=== PATIENT | male | born 1940 | race Caucasian/White ===

== ENCOUNTER 2021-05-10 11:15 | Day surgery (SDC) | payer OTHER, MEDICARE ==
[~2021-05-10] VITALS: Ht 162.6 cm; Wt 87.5 kg
[~2021-05-10 11:15] MED LIST: ASPI81CH PO; GLYB5 PO; INSULANI SC; LEVCAR2510 PO; LISI20 PO; METF500 PO; METF500C PO; NOVOLOG100 UNIT/3; OMEP20ER PO; PANTOPRAZOLE SO40 M1 PO; PERI4 PO; SIMV20 PO; SINEMET 25-1001 EAC1 PO; TRAM50 PO; ZOCOR20 MG PO
[2021-05-10] MEDS ORDERED: TRULICITY1.5 MG/0.1 (11:52)
--- NOTE | 2021-05-10 11:56 | NUR ---
PT ADMITTED TO [facility]. AGREES WITH PLANNED SURGERY. LUNG SOUNDS CLEAR.
--- NOTE | 2021-05-10 16:12 | NUR ---
ARRIVED FROM PACU VIA BED, AWAKE, A&OX4, DENIES ANY PAIN AT THIS TIME, DENIES ANY NUMBNESS OR TINGLING, MOVES TOES WELL, CLEAR LIQUIDS GIVEN, ORIENTED TO ROOM AND CALL LIGHT, CONT. TO MONITOR FOR ANY CHANGES.
[2021-05-10] MEDS ORDERED: MAGNESIUM OXID500 MG PO (16:35)
--- NOTE | 2021-05-10 17:26 | NUR ---
SUMMARY VSS, MEDICATED FOR PAIN SCHEDULED FOR C/O 09/13 BACK PAIN, LLE DSG C/D/I, PT EATING DINNER, DENIES ANY NAUSEA, NO ACUTE CHANGES THIS SHIFT.
[2021-05-11 04:46] LABS: BASOPHILS ABSOLUTE AUTO 0.01 K/mm3 (0.00-0.23); BASOPHILS PERCENT AUTO 0 % (0-2); EOSINOPHILS PERCENT AUTO 0 % (0-6); Hematocrit 40.5 % (37.0-53.0); Hemoglobin 13.4 g/dL (13.5-17.5); IMMATURE GRAN ABSOLUTE AUTO 0.05 K/mm3 (0.00-0.10); IMMATURE GRAN PERCENT AUTO 0 % (0-1); LYMPHOCYTES ABSOLUTE AUTO 0.59 K/mm3 (0.84-5.20); LYMPHOCYTES PERCENT AUTO 4 % (21-46); MONOCYTES ABSOLUTE AUTO 0.74 K/mm3 (0.16-1.47); MONOCYTES PERCENT AUTO 5 % (4-13); Mean Corpuscular HGB 27.4 pg (26.0-34.0); Mean Corpuscular HGB Conc 33.1 g/dL (31.5-36.5); Mean Corpuscular Volume 83 fL (80-100); Mean Platelet Volume 9.9 fL (9.1-12.4); NEUTROPHILS ABSOLUTE AUTO 12.21 K/mm3 (1.96-9.15); NEUTROPHILS PERCENT AUTO 90 % (41-73); Platelet Count 210 K/mm3 (150-400); RDW Coefficient Variation 13.6 % (11.7-14.2); RDW Standard Deviation 41.2 fL (35.1-46.3); Red Blood Cell Count 4.89 M/mm3 (4.30-5.90)
[2021-05-11 05:14] LABS: Anion Gap 8 mmol/L (6-16); Blood Urea Nitrogen 22 mg/dL (8-24); Bun/Creatinine Ratio 23.3 (12.0-20.0); CO2, Blood 24 mmol/L (21-32); Calcium, Blood 8.6 mg/dL (8.5-10.1); Chloride, Blood 105 mmol/L (98-108); Creatinine, Blood 0.94 mg/dL (0.60-1.20); Glomerular Filtration Rate >60 (60-); Glucose, Blood 222 mg/dL (70-99); Potassium, Blood 4.5 mmol/L (3.5-5.5); Sodium, Blood 137 mmol/L (136-145)
--- NOTE | 2021-05-11 05:30 | NUR ---
SHIFT SUMMARY SAUL IS POD#1 S/P TKA TO THE LEFT KNEE. ROOM AIR. LUNG SOUNDS CLEAR. WOUND IS DRESSED WITH AQUACELL, TONI WRAP AND POLAR PACK. C/D/I, NO DRAINAGE NOTED. HE HAS AMBULATED IN ROOM TWICE TO BATHROOM TO VOID USING URINAL, WITH FWW, GAIT BELT AND ASSISTANCE FROM ONE STAFF MEMBER. A&O X4. IV ACCESS IN LEFT AC. ROOM AIR. PT HAS BEEN RESTING IN RECLINER WITH LEG ELEVATED ON A PILLOW. THIS IS MORE COMFORTABLE THAN THE BED FOR PT. CALL LIGHT WITHIN REACH, ABLE TO MAKE HIS NEEDS KNOWN.
--- NOTE | 2021-05-11 07:12 | NUR ---
POD 1 S/P L TKA. PT VSS, DRESSING CDI. PAIN MGD PER EMAR. PT VOIDING URINE W/O DIFFICULTY, NO C/O N/V. PT UP OOB W/FWW+SBA, PEREZ WELL.
[2021-05-11] MEDS ORDERED: Percocet 5-3251 EACH PO (12:41)
--- NOTE | 2021-05-11 14:25 | NUR ---
DISCHARGE SUMMARY PT A/O X4; PLEASANT AND COOPERATIVE WITH CARE. POD #1 FOR L TOTAL KNEE. GETS UP WITH A SBA W/FWW/GB. MINIMAL PAIN AND TREATED PER EMR X1. TONI WRAP AND AQUACEL DRESSING IN PLACE AND CDI. 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 DC'D HOME WITH FAMILY FRIEND.
--- NOTE | 2021-05-12 07:36 | NUR ---
05/12/21 0736 Nora Gee VERIFICATIONS: EDIT CHART.
== END 2021-05-11 14:30 | disposition home or self-care (01) ==
LOC: ORSCMMR 11:15 → ORD 12:30 → ORSCMMR 12:30 → SURS 16:02 → ORSCMMR 05-11 12:48 → SURS 05-11 12:48 → ORSCMMR 05-11 14:30 → SURS 05-11 14:30
PROVIDERS: Orthopaedic Surgery
PROC: 0SRD0JA Replacement of Left Knee Joint with Synthetic Substitute, Uncemented, Open Approach (ICD-10-PCS; principal; 2021-05-10 12:30)
PROC: 8E0Y0CZ Robotic Assisted Procedure of Lower Extremity, Open Approach (ICD-10-PCS; principal; 2021-05-10 12:30)
DX: M17.12 Unilateral primary osteoarthritis, left knee (principal); I10 Essential (primary) hypertension; E11.9 Type 2 diabetes mellitus without complications; G20 Parkinson's disease; Z79.4 Long term (current) use of insulin; Z79.899 Other long term (current) drug therapy; Z79.82 Long term (current) use of aspirin
CPT/HCPCS: 27447; S2900; 36415; 73560-LT; 80048; 82947; 85025; 87426; 97110; 97116; 97161; 97530; A9270; C1776; C9803; J0171; J0690; J0735; J1100; J1815; J1885; J2405; J2704; J2765; J2795; J3010; J7120